=== PATIENT | male | born 1980 | race African-American/Black ===

== ENCOUNTER → 2020-05-24 | Outpatient (CLI) | payer OTHER | LOC: LAB 11:37 | DX: L30.9 Dermatitis, unspecified (principal) | CPT/HCPCS: 87070 ==

== ENCOUNTER 2020-07-23 20:59 | Emergency (ER) | payer OTHER ==
[~2020-07-23] VITALS: Ht 180.3 cm; Wt 98.8 kg
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
[2020-07-23] MEDS ORDERED: CYCL-331 PO (22:02)
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
[2020-07-23] MEDS ORDERED: HYDR-3165 PO (22:31)
[2020-07-23 22:40] VITALS: BP 146/100
== END 2020-07-23 22:40 | disposition home or self-care (01) ==
LOC: ER 20:59
DX: S01.511A Laceration without foreign body of lip, initial encounter (principal); S16.1XXA Strain of muscle, fascia and tendon at neck level, initial encounter; S00.83XA Contusion of other part of head, initial encounter; Y08.89XA Assault by other specified means, initial encounter; Y93.89 Activity, other specified; Y92.89 Other specified places as the place of occurrence of the external cause; Y99.8 Other external cause status
CPT/HCPCS: 70450; 70486; 99284-25; 99285-25